=== PATIENT | male | born 1960 | race Caucasian/White ===

== ENCOUNTER → 2017-02-15 | Day surgery (SDC) | payer BC ==
[~2017-02-15] VITALS: Ht 182.9 cm; Wt 121.2 kg
[~2017-02-15] MED LIST: LIPITOR40 MG PO; PROTONIX40 MG PO; THERA-VITE W/ B1 TAB PO
[2017-02-15 11:18] LABS: BLOOD UREA NITROGEN 21 mg/dL (6-24); CREATININE 0.8 mg/dL (0.6-1.3)
[2017-02-15 11:20] LABS: ESTIMATED GFR (MDRD EQUATION) > 60
== END | disposition disaster alternative care site (69) ==
LOC: GPOC 02-08 15:00 → GEND 08:28 → GPOC 15:00
PROVIDERS: Obstetrics & Gynecology Obstetrics
PROC: 0DB28ZX Excision of Middle Esophagus, Via Natural or Artificial Opening Endoscopic, Diagnostic (ICD-10-PCS; principal; 2017-02-15)
PROC: 0DB68ZX Excision of Stomach, Via Natural or Artificial Opening Endoscopic, Diagnostic (ICD-10-PCS; 2017-02-15)
PROC: 0DB38ZX Excision of Lower Esophagus, Via Natural or Artificial Opening Endoscopic, Diagnostic (ICD-10-PCS; 2017-02-15)
DX: K21.9 Gastro-esophageal reflux disease without esophagitis (principal); K44.9 Diaphragmatic hernia without obstruction or gangrene; F32.9 Major depressive disorder, single episode, unspecified; E78.2 Mixed hyperlipidemia; Z87.891 Personal history of nicotine dependence; E66.9 Obesity, unspecified; Z98.890 Other specified postprocedural states; Z79.899 Other long term (current) drug therapy; Z88.8 Allergy status to other drugs, medicaments and biological substances; Z91.09 Other allergy status, other than to drugs and biological substances
CPT/HCPCS: J2001; J7030